=== PATIENT | male | born 1950 | race American Indian/Alaskan Native ===

== ENCOUNTER 2016-08-16 08:08 | Outpatient (CLI) | payer MEDICARE ==
[2016-08-16 08:34] LABS: Hemoglobin 14.3 gm/dl (11.8-15.2); Mean Corpuscular HGB Conc 33 % (32-34); Mean Corpuscular Hemoglobin 28 pg (28-32); Mean Corpuscular Volume 84 fl (84-94); Red Blood Count 5.13 M/mm3 (3.65-5.03); Red Cell Distribution Width 15.3 % (13.2-15.2); White Blood Count 7.7 K/mm3 (4.5-11.0)
[2016-08-16 08:41] LABS: Platelet Count 179 K/mm3 (140-440)
[2016-08-16 09:05] LABS: Alanine Aminotransferase 36 units/L (7-56); Albumin 4.4 g/dL (3.9-5); Albumin/Globulin Ratio 1.3 %; Alkaline Phosphatase 85 units/L (35-129); Anion Gap 20 mmol/L; Bilirubin,Total 0.3 mg/dL (0.1-1.2); Blood Urea Nitrogen 13 mg/dL (9-20); Calcium 9.3 mg/dL (8.4-10.2); Carbon Dioxide 21 mmol/L (22-30); Chloride 101.3 mmol/L (98-107); Glucose 94 mg/dL (75-100); Potassium 4.2 mmol/L (3.6-5.0); Sodium 138 mmol/L (137-145); Total Protein 7.8 g/dL (6.3-8.2)
--- NOTE | 2016-08-16 09:06 | XRay Report ---
Chest 2 views: History: Acute bronchitis. Findings: Normal cardiomediastinal silhouette. Trachea is midline. Prominent bronchovascular markings. No consolidation or pleural effusion. Impression: Probable bronchitis. No evidence of pneumonitis.
== END 2016-08-16 08:09 | disposition home or self-care (01) ==
LOC: XRAY 08:08
PROVIDERS: ATTEND Internal Medicine
DX: J20.9 Acute bronchitis, unspecified (principal)
CPT/HCPCS: 36415; 71020; 80053; 84439; 84443; 85027

== ENCOUNTER 2016-10-07 15:19 | Inpatient (IN) | payer MEDICARE ==
[2016-10-07] MEDS ORDERED: NACL 0.9% 500 ML 500 ML ONE (15:58)
--- NOTE | 2016-10-07 16:21 | XRay Report ---
PORTABLE CHEST INDICATION: Shortness of breath. COMPARISON: 08/16/2016 FINDINGS: Portable, frontal chest radiograph demonstrates limited inspiration with slightly crowded lung markings and slight exaggerated cardiomediastinal silhouette. No pleural effusions or CHF. EKG leads. Stable bones. CONCLUSION: No acute disease. Thank you for the opportunity to participate in this patient's care.
[2016-10-07 16:43] LABS: Hematocrit 42.4 % (35.5-45.6); Hemoglobin 13.7 gm/dl (11.8-15.2); Mean Corpuscular HGB Conc 32 % (32-34); Mean Corpuscular Hemoglobin 27 pg (28-32); Mean Corpuscular Volume 85 fl (84-94); Platelet Count 203 K/mm3 (140-440); Red Cell Distribution Width 15.6 % (13.2-15.2); White Blood Count 4.7 K/mm3 (4.5-11.0)
[2016-10-07 16:58] LABS: Alanine Aminotransferase 34 units/L (7-56); Albumin 4.4 g/dL (3.9-5); Albumin/Globulin Ratio 1.7 %; Alkaline Phosphatase 76 units/L (35-129); Anion Gap 19 mmol/L; BUN/Creatinine Ratio 7.85; Bilirubin,Total 0.3 mg/dL (0.1-1.2); Blood Urea Nitrogen 11 mg/dL (9-20); Calcium 9.3 mg/dL (8.4-10.2); Carbon Dioxide 23 mmol/L (22-30); Chloride 100.3 mmol/L (98-107); Glucose 101 mg/dL (75-100); Sodium 138 mmol/L (137-145)
[2016-10-07 17:07] LABS: Bilirubin,Direct < 0.2 mg/dL (0-0.2); Bilirubin,Indirect 0.1 mg/dL
--- NOTE | 2016-10-07 17:16 | Emergency Department Report ---
ED Chest Pain HPI - General Chief Complaint: Chest Pain Stated Complaint: CHEST PAIN Time Seen by Provider: 10/07/16 16:22 Source: patient, EMS Mode of arrival: Wheelchair Limitations: No Limitations - History of Present Illness MD Complaint: chest pain -: This morning Pain Location: substernal Pain Radiation: none Severity: moderate Severity scale (0 -10): 3 Quality: tightness, aching Consistency: constant Improves With: nothing Worsens With: nothing Other Symptoms: denies: fever, syncope, acid taste in mouth, leg swelling Treatments Prior to Arrival: none - Related Data Previous Rx's Medication Instructions Recorded Last Taken Type Pantoprazole [Protonix INJ] 40 mg PO DAILY #30 tab 08/31/13 Unknown Rx Allergies Allergy/AdvReac Type Severity Reaction Status Date / Time No Known Allergies Allergy Verified 09/10/13 09:16 NAZANIN score - Nazanin Score Age > 65: (0) No Aspirin use within the Past 7 Days: (1) Yes 3 or more CAD Risk Factors: (0) No 2 or more Angina events in past 24 hrs: (0) No Known CAD with more than 50% Stenosis: (0) No Elevated Cardiac Markers: (0) No ST Deviation Greater than 0.5mm: (0) No NAZANIN Score: 1 ED Review of Systems ROS: Stated complaint: CHEST PAIN Other details as noted in HPI Comment: All other systems reviewed and negative ED Past Medical Hx - Past Medical History Previous Medical History?: Yes Hx Hypertension: Yes Hx Heart Attack/AMI: No Hx Congestive Heart Failure: No Hx Diabetes: No Hx Deep Vein Thrombosis: No Hx Pulmonary Embolism: No Hx GERD: Yes Hx Liver Disease: No Hx Renal Disease: No Hx of Cancer: Yes (prostate and colon Unknown year) Hx Sickle Cell Disease: No Hx Arthritis: No Hx Seizures: No Hx Kidney Stones: No Hx Asthma: No Hx COPD: No Hx Tuberculosis: No Hx Dementia: No Hx HIV: No Additional medical history: Fatty tissue on liver, alcoholism - Surgical History Past Surgical History?: Yes Hx Coronary Stent: No Hx Pacemaker: No Hx Internal Defibrillator: No Additional Surgical History: bowel reconstruction-1999? part of colon removed; prostate removed - Social History Smoking Status: Former Smoker Substance Use Type: Prescribed - Medications Home Medications: Home Medications Medication Instructions Recorded Confirmed Last Taken Type Pantoprazole [Protonix INJ] 40 mg PO DAILY #30 tab 08/31/13 09/10/13 Unknown Rx ED Physical Exam - General Limitations: No Limitations General appearance: alert, in no apparent distress - Head Head exam: Present: atraumatic, normocephalic - Eye Eye exam: Present: normal appearance - ENT ENT exam: Present: mucous membranes moist - Neck Neck exam: Present: normal inspection - Respiratory Respiratory exam: Present: normal lung sounds bilaterally. Absent: respiratory distress - Cardiovascular Cardiovascular Exam: Present: regular rate, normal rhythm. Absent: systolic murmur, diastolic murmur, rubs, gallop - GI/Abdominal GI/Abdominal exam: Present: soft, normal bowel sounds - Rectal Rectal exam: Present: deferred - Extremities Exam Extremities exam: Present: normal inspection - Back Exam Back exam: Present: normal inspection - Neurological Exam Neurological exam: Present: alert, oriented X3 - Psychiatric Psychiatric exam: Present: normal affect, normal mood - Skin Skin exam: Present: warm, dry, intact, normal color. Absent: rash ED Course Vital Signs 10/07/16 10/07/16 10/07/16 15:27 15:30 15:41 Temperature 98.6 F Pulse Rate 89 75 Respiratory 13 14 16 Rate Blood Pressure 133/78 Blood Pressure [Left] O2 Sat by Pulse Oximetry 10/07/16 10/07/16 15:45 15:51 Temperature 98.5 F Pulse Rate 77 18 L Respiratory 18 16 Rate Blood Pressure 134/75 Blood Pressure 133/75 [Left] O2 Sat by Pulse 95 95 Oximetry ED Medical Decision Making - Lab Data Result diagrams: 10/07/16 16:18 10/07/16 16:18 - EKG Data When compared to previous EKG there are: no significant change Interpretation: no acute changes, unchanged when compared t - Medical Decision Making patient will be admitted for chest pain and probably stressed tomorrow am, first set of enzymes negative. cxr negative he is pain free at this time , discuss case with cardiology and agree with the admission Critical care attestation.: If time is entered above; I have spent that time in minutes in the direct care of this critically ill patient, excluding procedure time. ED Disposition Clinical Impression: Chest pain Disposition: OP ADMITTED IP TO THIS HOSP Is pt being admited?: Yes Does the pt Need Aspirin: Yes Condition: Good Referrals: PRIMARY CARE,MD [Primary Care Provider] - 3-5 Days Time of Disposition: 18:46
--- NOTE | 2016-10-07 19:03 | Admit Criteria Form ---
Admission Criteria Documentation: CHEST PAIN Clinical Indications for Admission to Inpatient Care (Place 'X' for any and all applicable criteria): Admission is indicated for chest pain and ANY ONE of the following(1)(2)(3)(4)(5 ): [ ]I. Angina with acute coronary syndrome (Also use Myocardial Infarction or Angina guideline) [ ]II. Hemodynamic instability [ ]III. Angina needing acute intervention as indicated by ALL of the following( 11)(12): [ ]a) Unstable angina is present as indicated by angina that is ANY ONE of the following: [ ]i) New onset [ ]ii) Nocturnal [ ]iii) Prolonged at rest [ ]iv) Progressive [ ]b) Angina warrants acute intervention as indicated by ANY ONE of the following: [ ]i) Recurrent angina (e.g, not responding as previously to treatment) [ ]ii) Angina at rest or with low-level activities despite initial medical therapy [ ]iii) New or presumably new ST-segment depression on ECG [ ]iv) Signs or symptoms of heart failure (eg, dyspnea, pulmonary edema) [ ]v) New or worsening mitral regurgitation [ ]vi) Hemodynamic instability [ ]vii) Dangerous arrhythmia (eg, sustained ventricular tachycardia) [ ]viii) History of percutaneous coronary intervention within 6 months [ ]ix) History of coronary artery bypass graft surgery [ ]x) NAZANIN risk score of 2 or greater[A] [ ]xi) History of Diabetes(14) [ ]xii) High-risk cardiac ischemia findings on noninvasive testing (e.g, echocardiogram, treadmill testing, nuclear scan) [ ]xiii) Chronic renal insufficiency (ie, estimated GFR less than 60 mL/min/1.732m) [ ]xiv) Left ventricular ejection fraction less than 40% [ ]IV. Evidence of WA (eg, cardiac biomarkers positive, ST-segment elevation on ECG) also use Myocardial Infarction Criteria Form. [ ]V. Pulmonary edema [ ]. Respiratory distress [ ]VII. Chest pain indicative of serious diagnosis other than coronary artery disease (eg, aortic dissection) [ ]VIII. Contraindications and/or Inappropriate clinical situations for Observational Care in patients with Chest Pain, when ANY ONE of the following is required: [ ]a) Patient with risk factor for pulmonary embolism, acute coronary syndrome and myocardial infarction (18) [ ]b) Patient with Pulmonary embolism require an average LOS of 4.3 days, therefore emergency department observation management is inappropriate 18,23 [ ]c) Painful condition/s in the elderly, have the highest rate of recidivism after emergency department observation management (10.8%) 20,21,22 [ ]d) Elevated cardiac biomarker requires intensive and exhaustive care (19) [X ]IX. General contraindications and/or Inappropriate clinical situations for Observational Care in patients with Chest Pain, when ANY ONE of the following is required: [X ]a) Prediction of prolongation of LOS based on ANY ONE of the following may be considered as a contraindication for observational care 2, 3, 4, 5, 6, 7, 8, 9, 10, 11 [ ]i) Age > 65 yrs. [X ]ii) Patient arriving by ambulance [ ]iii) Patient with high acuity [ ]iv) Patient requiring vital sign monitoring [ ]v) Patient on IV medication [ ]b) Systolic blood pressures 180mmHg 3,12 [ ]c) Patient with altered mental status including delirium and other alteration of consciousness, (3) [ ]d) Patient whose discharge disposition will be to a penitentiary home or rehabilitation home should not be managed in Emergency Department Observation Unit. CMS rule requires 3 days hospital stay before such placement. 3,13 [ ]e) Patient with failure to thrive due to broad array of etiologies 3,16,17 [ ]f) Inability to ambulate 3,14 Extended stay beyond goal length of stay may be needed for (1)(28): [ ]a) Specific condition diagnosed after evaluation (eg, pulmonary embolism, aortic dissection) [ ]b) Unstable angina [ ]c) Continued suspicion of acute coronary syndrome with inability to complete needed cardiac evaluation (eg, patient clinically unable to undergo stress testing) [ ]d) Myocardial infarction (Contents from ANGINA and CHEST PAIN clinical indications for admission to inpatient care have been integrated in this form) The original [facility] content created by [email or web address] has been revised. The portions of the content which have been revised are identified through the use of italic text or in bold, and [facility] [email or web address] has neither reviewed nor approved the modified material. All other unmodified content is copyright [facility]. Please see references footnoted in the original [facility] edition 2016 Admission Criteria Met: Yes
[2016-10-07 20:00] LABS: Basophils % (Manual) 0 % (0.0-1.8); Blastocytes % (Manual) 0 %
[2016-10-07 20:01] LABS: Diff Status Complete; RBC Morphology Normal
--- NOTE | 2016-10-07 21:33 | History and Physical Report ---
History of Present Illness Date of examination: 10/07/16 Date of admission: 10/07/16 18:48 Chief complaint: Chest pain since AM History of present illness: 65 y/o AAM with HTN GeRD and urinary incontinence comes in for chest pain since AM.No Diaphoresis palpitations or SOB.Pain is 9/10.Pain is retrosternal and not radiating.No exacerbating or relieving factors. Past History Past Medical History: GERD, hypertension, other (urinary incontinence) Past Surgical History: Other (Bowel reconstruction.Colectomy, prostatectomy) Social history: , smoking (Former) Family history: hypertension Medications and Allergies Allergies Allergy/AdvReac Type Severity Reaction Status Date / Time No Known Allergies Allergy Verified 09/10/13 09:16 Home Medications Medication Instructions Recorded Confirmed Last Taken Type Cetirizine (Nf) 10 mg PO DAILY 10/07/16 10/07/16 Unknown History Dexlansoprazole [Dexilant] 60 mg PO DAILY 10/07/16 10/07/16 Unknown History Ibuprofen [Motrin 800 MG tab] 800 mg PO TID 10/07/16 10/07/16 Unknown History Losartan [Cozaar] 50 mg PO QDAY 10/07/16 10/07/16 Unknown History Mirabegron [Myrbetriq] 50 mg PO DAILY 10/07/16 10/07/16 Unknown History amLODIPine [Norvasc] 10 mg PO DAILY 10/07/16 10/07/16 Unknown History Review of Systems All systems: negative Constitutional: no weight loss, no weight gain Ears, nose, mouth and throat: no dysphagia, no hoarseness, no sore throat Cardiovascular: chest pain, no orthopnea, no palpitations, no shortness of breath, no dyspnea on exertion, no paroxysmal nocturnal dyspnea Respiratory: no cough with sputum, no excessive sputum, no shortness of breath, no dyspnea on exertion, no congestion Gastrointestinal: no nausea, no vomiting, no diarrhea, no constipation, no change in bowel habits Genitourinary Male: no hematuria, no flank pain, no discharge, no urinary frequency, no urinary hesitancy, no nocturia Musculoskeletal: no neck stiffness, no neck pain Integumentary: no rash, no pruritis, no redness, no sores Neurological: no seizures, no syncope Psychiatric: no anxiety, no depression Endocrine: no cold intolerance, no heat intolerance, no polyphagia, no polydipsia, no polyuria, no nocturia Hematologic/Lymphatic: no easy bruising, no easy bleeding Allergic/Immunologic: no urticaria, no allergic rhinitis, no wheezing Exam - Physical Exam Narrative exam: 65 y/o AAM in slight distress b/c of chest pain - Constitutional Vitals: Temp Pulse Resp BP Pulse Ox 98.6 F 71 20 131/71 96 10/07/16 20:08 10/07/16 20:08 10/07/16 20:08 10/07/16 20:08 10/07/16 20:08 General appearance: Present: no acute distress, well-nourished - EENT Eyes: Present: PERRL ENT: hearing intact, clear oral mucosa - Neck Neck: Present: supple, normal ROM - Respiratory Respiratory effort: normal Respiratory: bilateral: CTA - Cardiovascular Rhythm: regular Heart Sounds: Present: S1 & S2. Absent: rub, click - Extremities Extremities: pulses symmetrical, No edema Peripheral Pulses: within normal limits - Abdominal General gastrointestinal: Present: soft, non-tender, non-distended, normal bowel sounds Male genitourinary: Present: normal - Integumentary Integumentary: Present: clear, warm, dry - Musculoskeletal Musculoskeletal: gait normal, strength equal bilaterally - Psychiatric Psychiatric: appropriate mood/affect, intact judgment & insight - Neurologic Neurologic: CNII-XII intact, moves all extremities Results - Labs CBC & Chem 7: 10/07/16 16:18 10/07/16 16:18 Labs: Laboratory Last Values WBC 4.7 K/mm3 (4.5-11.0) 10/07/16 16:18 RBC 5.00 M/mm3 (3.65-5.03) 10/07/16 16:18 Hgb 13.7 gm/dl (11.8-15.2) 10/07/16 16:18 Hct 42.4 % (35.5-45.6) 10/07/16 16:18 MCV 85 fl (84-94) 10/07/16 16:18 MCH 27 pg (28-32) L 10/07/16 16:18 MCHC 32 % (32-34) 10/07/16 16:18 RDW 15.6 % (13.2-15.2) H 10/07/16 16:18 Plt Count 203 K/mm3 (140-440) 10/07/16 16:18 Add Manual Diff Complete 10/07/16 16:18 Total Counted 100 10/07/16 16:18 Seg Neutrophils % Scale Reclamation Tender 10/07/16 16:18 Seg Neuts % (Manual) 28.0 % (40.0-70.0) L 10/07/16 16:18 Band Neutrophils % 0 % 10/07/16 16:18 Lymphocytes % (Manual) 58.0 % (13.4-35.0) H 10/07/16 16:18 Reactive Lymphs % (Man) 0 % 10/07/16 16:18 Monocytes % (Manual) 11.0 % (0.0-7.3) H 10/07/16 16:18 Eosinophils % (Manual) 3.0 % (0.0-4.3) 10/07/16 16:18 Basophils % (Manual) 0 % (0.0-1.8) 10/07/16 16:18 Metamyelocytes % 0 % 10/07/16 16:18 Myelocytes % 0 % 10/07/16 16:18 Promyelocytes % 0 % 10/07/16 16:18 Blast Cells % 0 % 10/07/16 16:18 Nucleated RBC % Not Reportable 10/07/16 16:18 Seg Neutrophils # Man 1.3 K/mm3 (1.8-7.7) L 10/07/16 16:18 Band Neutrophils # 0.0 K/mm3 10/07/16 16:18 Lymphocytes # (Manual) 2.7 K/mm3 (1.2-5.4) 10/07/16 16:18 Abs React Lymphs (Man) 0.0 K/mm3 10/07/16 16:18 Monocytes # (Manual) 0.5 K/mm3 (0.0-0.8) 10/07/16 16:18 Eosinophils # (Manual) 0.1 K/mm3 (0.0-0.4) 10/07/16 16:18 Basophils # (Manual) 0.0 K/mm3 (0.0-0.1) 10/07/16 16:18 Metamyelocytes # 0.0 K/mm3 10/07/16 16:18 Myelocytes # 0.0 K/mm3 10/07/16 16:18 Promyelocytes # 0.0 K/mm3 10/07/16 16:18 Blast Cells # 0.0 K/mm3 10/07/16 16:18 WBC Morphology Not Reportable 10/07/16 16:18 Hypersegmented Neuts Not Reportable 10/07/16 16:18 Hyposegmented Neuts Not Reportable 10/07/16 16:18 Hypogranular Neuts Not Reportable 10/07/16 16:18 Smudge Cells Not Reportable 10/07/16 16:18 Toxic Granulation Not Reportable 10/07/16 16:18 Toxic Vacuolation Not Reportable 10/07/16 16:18 Dohle Bodies Not Reportable 10/07/16 16:18 Pelger-Huet Anomaly Not Reportable 10/07/16 16:18 Marky Rods Not Reportable 10/07/16 16:18 Platelet Estimate Appears normal 10/07/16 16:18 Clumped Platelets Not Reportable 10/07/16 16:18 Plt Clumps, EDTA Not Reportable 10/07/16 16:18 Large Platelets Not Reportable 10/07/16 16:18 Giant Platelets Not Reportable 10/07/16 16:18 Platelet Satelliting Not Reportable 10/07/16 16:18 Plt Morphology Comment Not Reportable 10/07/16 16:18 RBC Morphology Normal 10/07/16 16:18 Dimorphic RBCs Not Reportable 10/07/16 16:18 Polychromasia Not Reportable 10/07/16 16:18 Hypochromasia Not Reportable 10/07/16 16:18 Poikilocytosis Not Reportable 10/07/16 16:18 Anisocytosis Not Reportable 10/07/16 16:18 Microcytosis Not Reportable 10/07/16 16:18 Macrocytosis Not Reportable 10/07/16 16:18 Spherocytes Not Reportable 10/07/16 16:18 Pappenheimer Bodies Not Reportable 10/07/16 16:18 Sickle Cells Not Reportable 10/07/16 16:18 Target Cells Not Reportable 10/07/16 16:18 Tear Drop Cells Not Reportable 10/07/16 16:18 Ovalocytes Not Reportable 10/07/16 16:18 Helmet Cells Not Reportable 10/07/16 16:18 [place] Bodies Not Reportable 10/07/16 16:18 Badger Rings Not Reportable 10/07/16 16:18 Vineet Cells Not Reportable 10/07/16 16:18 Bite Cells Not Reportable 10/07/16 16:18 Crenated Cell Not Reportable 10/07/16 16:18 Elliptocytes Not Reportable 10/07/16 16:18 Acanthocytes (Spur) Not Reportable 10/07/16 16:18 Rouleaux Not Reportable 10/07/16 16:18 Hemoglobin C Crystals Not Reportable 10/07/16 16:18 Schistocytes Not Reportable 10/07/16 16:18 Malaria parasites Not Reportable 10/07/16 16:18 Jesus Bodies Not Reportable 10/07/16 16:18 Hem Pathologist Commnt No 10/07/16 16:18 Sodium 138 mmol/L (137-145) 10/07/16 16:18 Potassium 4.0 mmol/L (3.6-5.0) 10/07/16 16:18 Chloride 100.3 mmol/L (98-107) 10/07/16 16:18 Carbon Dioxide 23 mmol/L (22-30) 10/07/16 16:18 Anion Gap 19 mmol/L 10/07/16 16:18 BUN 11 mg/dL (9-20) 10/07/16 16:18 Creatinine 1.4 mg/dL (0.8-1.5) 10/07/16 16:18 Estimated GFR > 60 ml/min 10/07/16 16:18 BUN/Creatinine Ratio 7.85 % 10/07/16 16:18 Glucose 101 mg/dL (75-100) H 10/07/16 16:18 Calcium 9.3 mg/dL (8.4-10.2) 10/07/16 16:18 Total Bilirubin 0.3 mg/dL (0.1-1.2) 10/07/16 16:18 Direct Bilirubin < 0.2 mg/dL (0-0.2) 10/07/16 16:18 Indirect Bilirubin 0.1 mg/dL 10/07/16 16:18 AST 25 units/L (5-40) 10/07/16 16:18 ALT 34 units/L (7-56) 10/07/16 16:18 Alkaline Phosphatase 76 units/L (35-129) 10/07/16 16:18 Troponin T < 0.010 ng/mL (0.00-0.029) 10/07/16 16:18 Total Protein 7.0 g/dL (6.3-8.2) 10/07/16 16:18 Albumin 4.4 g/dL (3.9-5) 10/07/16 16:18 Albumin/Globulin Ratio 1.7 % 10/07/16 16:18 Short CBC 10/07/16 Range/Units 16:18 WBC 4.7 (4.5-11.0) K/mm3 Hgb 13.7 (11.8-15.2) gm/dl Hct 42.4 (35.5-45.6) % Plt Count 203 (140-440) K/mm3 BMP 10/07/16 16:18 Sodium 138 Potassium 4.0 Chloride 100.3 Carbon Dioxide 23 BUN 11 Creatinine 1.4 Glucose 101 H Calcium 9.3 Cardiac Enzymes 10/07/16 10/07/16 10/08/16 Range/Units 16:18 22:08 00:42 Total Creatine Kinase 340 H 320 H (55-170) units/L CK-MB (CK-2) 3.2 3.0 (0.0-4.0) ng/mL Troponin T < 0.010 < 0.010 < 0.010 (0.00-0.029) ng/mL 10/08/16 Range/Units 05:54 Total Creatine Kinase 298 H (55-170) units/L CK-MB (CK-2) 2.6 (0.0-4.0) ng/mL Troponin T < 0.010 (0.00-0.029) ng/mL Liver Function 10/07/16 Range/Units 16:18 Total Bilirubin 0.3 (0.1-1.2) mg/dL Direct Bilirubin < 0.2 (0-0.2) mg/dL AST 25 (5-40) units/L ALT 34 (7-56) units/L Alkaline Phosphatase 76 (35-129) units/L Albumin 4.4 (3.9-5) g/dL - Imaging and Cardiology EKG: report reviewed (NSR) Assessment and Plan Advance Directives: Yes (Full code) VTE prophylaxis?: Chemical Plan of care discussed with patient/family: Yes - Patient Problems (1) Chest pain Current Visit: Yes Status: Acute Qualifiers: Chest pain type: unspecified Qualified Code(s): R07.9 - Chest pain, unspecified Plan to address problem: Chest pain r/o FL.Serial cardiac enzymes and Lexiscan in AM (2) HTN (hypertension) Current Visit: Yes Status: Chronic Qualifiers: Hypertension type: essential hypertension Qualified Code(s): I10 - Essential (primary) hypertension Plan to address problem: Cont anti hypertensives (3) GERD (gastroesophageal reflux disease) Current Visit: Yes Status: Chronic Qualifiers: Esophagitis presence: without esophagitis Qualified Code(s): K21.9 - Gastro -esophageal reflux disease without esophagitis Plan to address problem: Cont PPI's (4) Urinary bladder incontinence Current Visit: Yes Status: Chronic Qualifiers: Urinary Incontinence type: stress incontinence Qualified Code(s): N39.3 - Stress incontinence (female) (male) Plan to address problem: On myrbetriq (5) Allergic rhinitis Current Visit: Yes Status: Chronic Qualifiers: Allergic rhinitis seasonality: non-seasonal Allergic rhinitis trigger: A Plan to address problem: Cont cetrizine (6) DVT prophylaxis Current Visit: Yes Status: Acute Plan to address problem: on lovenox
[2016-10-07] MEDS ORDERED: SODIUM CHLORIDE FLUSH SYRINGE 10 ML IV PRN (21:38)
[2016-10-07] MEDS ORDERED: NON-FORMULARY (Dexlansoprazole [Dexilant] 60 MG) PO SCH (21:45)
[2016-10-07] MEDS ORDERED: CETIRIZINE 10 MG PO SCH (21:45)
[2016-10-07 22:46] LABS: Creatine Kinase 340 units/L (55-170); Creatine Kinase MB 3.2 ng/mL (0.0-4.0)
[2016-10-07] MEDS: NORVASC PO SCH (22:52)
[2016-10-07] MEDS: COZAAR PO SCH (22:52)
[2016-10-07] MEDS: CLARITIN PO SCH (22:53)
[2016-10-07] MEDS: PROTONIX PO SCH (22:53)
[2016-10-08 01:25] LABS: Creatine Kinase 320 units/L (55-170)
[2016-10-08 07:07] LABS: Creatine Kinase MB 2.6 ng/mL (0.0-4.0)
[2016-10-08 07:09] LABS: Creatine Kinase 298 units/L (55-170)
[2016-10-08] MEDS ORDERED: NON-FORMULARY (Mirabegron [Myrbetriq] 50 MG) PO SCH (10:00)
[2016-10-08] MEDS ORDERED: LEXISCAN IV ONE ×2 (10:28→10:33)
--- NOTE | 2016-10-08 11:07 | Discharge Summary ---
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 ACS was ruled out by negative troponins, he went on to have a Lexiscan nuclear stress test that was negative. Chest pain was most likely due to GERD and he was recommended to continue PPI. Diagnoses 1. Chest pain 2. GERD 3. Hypertension Disposition: DISCHARGED TO HOME OR SELFCARE Time spent for discharge: 35 minutes Core Measure Documentation - Palliative Care Palliative Care/ Comfort Measures: Not Applicable - Core Measures Any of the following diagnoses?: none Exam - Constitutional Vitals: Temp Pulse Resp BP Pulse Ox 98.5 F 72 20 134/70 92 10/08/16 08:13 10/08/16 08:13 10/08/16 08:13 10/08/16 08:13 10/08/16 08:13 General appearance: Present: no acute distress, well-nourished - EENT Eyes: Present: PERRL ENT: hearing intact, clear oral mucosa - Neck Neck: Present: supple, normal ROM - Respiratory Respiratory effort: normal Respiratory: bilateral: CTA - Cardiovascular Heart Sounds: Present: S1 & S2. Absent: rub, click - Extremities Extremities: pulses symmetrical, No edema Peripheral Pulses: within normal limits - Abdominal General gastrointestinal: Present: soft, non-tender, non-distended, normal bowel sounds Male genitourinary: Present: normal - Integumentary Integumentary: Present: clear, warm, dry - Musculoskeletal Musculoskeletal: gait normal, strength equal bilaterally - Psychiatric Psychiatric: appropriate mood/affect, intact judgment & insight - Neurologic Neurologic: CNII-XII intact, moves all extremities Plan Follow up with: PRIMARY CARE, [Primary Care Provider] - 3-5 Days
[2016-10-08] MEDS: PROTONIX PO SCH (13:18)
[2016-10-08] MEDS: CLARITIN PO SCH (13:19)
[2016-10-08] MEDS: COZAAR PO SCH (13:19)
[2016-10-08] MEDS: NORVASC PO SCH (13:19)
--- NOTE | 2016-10-08 17:54 | Progress Note ---
Assessment and Plan Assessment and plan: 25-year-old man with a past medical history of hypertension and GERD bladder incontinency presented chest pain 1 day 1. Chest pain ACS ruled out by negative troponins, awaiting stress test result 2. Hypertension Continue current medications 3. GERD Continue PPI 4. Bladder incontinence Continue chronic medications History Interval history: Chest pain has now resolved, patient admits that the pain might be more epigastric Hospitalist Physical - Physical exam Narrative exam: General: Patient appears well in no distress HEENT: MMM, EOMI cardiac: S1-S2 heard lungs: clear to auscultation, abdomen: soft, nontender, nondistended bowel sounds positive extremities: no edema clubbing or cyanosis Skin: no rash or lesion Neuro: no focal deficit Psych: appropriate behavior and mood, cognition intact - Constitutional Vitals: Temp Pulse Resp BP Pulse Ox 97.9 F 77 20 123/67 96 10/08/16 17:21 10/08/16 17:21 10/08/16 17:21 10/08/16 17:21 10/08/16 17:21 General appearance: Present: no acute distress, well-nourished Results - Labs CBC & Chem 7: 10/07/16 16:18 10/07/16 16:18 Labs: Laboratory Last Values WBC 4.7 K/mm3 (4.5-11.0) 10/07/16 16:18 RBC 5.00 M/mm3 (3.65-5.03) 10/07/16 16:18 Hgb 13.7 gm/dl (11.8-15.2) 10/07/16 16:18 Hct 42.4 % (35.5-45.6) 10/07/16 16:18 MCV 85 fl (84-94) 10/07/16 16:18 MCH 27 pg (28-32) L 10/07/16 16:18 MCHC 32 % (32-34) 10/07/16 16:18 RDW 15.6 % (13.2-15.2) H 10/07/16 16:18 Plt Count 203 K/mm3 (140-440) 10/07/16 16:18 Add Manual Diff Complete 10/07/16 16:18 Total Counted 100 10/07/16 16:18 Seg Neutrophils % Instrument Man 10/07/16 16:18 Seg Neuts % (Manual) 28.0 % (40.0-70.0) L 10/07/16 16:18 Band Neutrophils % 0 % 10/07/16 16:18 Lymphocytes % (Manual) 58.0 % (13.4-35.0) H 10/07/16 16:18 Reactive Lymphs % (Man) 0 % 10/07/16 16:18 Monocytes % (Manual) 11.0 % (0.0-7.3) H 10/07/16 16:18 Eosinophils % (Manual) 3.0 % (0.0-4.3) 10/07/16 16:18 Basophils % (Manual) 0 % (0.0-1.8) 10/07/16 16:18 Metamyelocytes % 0 % 10/07/16 16:18 Myelocytes % 0 % 10/07/16 16:18 Promyelocytes % 0 % 10/07/16 16:18 Blast Cells % 0 % 10/07/16 16:18 Nucleated RBC % Not Reportable 10/07/16 16:18 Seg Neutrophils # Man 1.3 K/mm3 (1.8-7.7) L 10/07/16 16:18 Band Neutrophils # 0.0 K/mm3 10/07/16 16:18 Lymphocytes # (Manual) 2.7 K/mm3 (1.2-5.4) 10/07/16 16:18 Abs React Lymphs (Man) 0.0 K/mm3 10/07/16 16:18 Monocytes # (Manual) 0.5 K/mm3 (0.0-0.8) 10/07/16 16:18 Eosinophils # (Manual) 0.1 K/mm3 (0.0-0.4) 10/07/16 16:18 Basophils # (Manual) 0.0 K/mm3 (0.0-0.1) 10/07/16 16:18 Metamyelocytes # 0.0 K/mm3 10/07/16 16:18 Myelocytes # 0.0 K/mm3 10/07/16 16:18 Promyelocytes # 0.0 K/mm3 10/07/16 16:18 Blast Cells # 0.0 K/mm3 10/07/16 16:18 WBC Morphology Not Reportable 10/07/16 16:18 Hypersegmented Neuts Not Reportable 10/07/16 16:18 Hyposegmented Neuts Not Reportable 10/07/16 16:18 Hypogranular Neuts Not Reportable 10/07/16 16:18 Smudge Cells Not Reportable 10/07/16 16:18 Toxic Granulation Not Reportable 10/07/16 16:18 Toxic Vacuolation Not Reportable 10/07/16 16:18 Dohle Bodies Not Reportable 10/07/16 16:18 Pelger-Huet Anomaly Not Reportable 10/07/16 16:18 Marky Rods Not Reportable 10/07/16 16:18 Platelet Estimate Appears normal 10/07/16 16:18 Clumped Platelets Not Reportable 10/07/16 16:18 Plt Clumps, EDTA Not Reportable 10/07/16 16:18 Large Platelets Not Reportable 10/07/16 16:18 Giant Platelets Not Reportable 10/07/16 16:18 Platelet Satelliting Not Reportable 10/07/16 16:18 Plt Morphology Comment Not Reportable 10/07/16 16:18 RBC Morphology Normal 10/07/16 16:18 Dimorphic RBCs Not Reportable 10/07/16 16:18 Polychromasia Not Reportable 10/07/16 16:18 Hypochromasia Not Reportable 10/07/16 16:18 Poikilocytosis Not Reportable 10/07/16 16:18 Anisocytosis Not Reportable 10/07/16 16:18 Microcytosis Not Reportable 10/07/16 16:18 Macrocytosis Not Reportable 10/07/16 16:18 Spherocytes Not Reportable 10/07/16 16:18 Pappenheimer Bodies Not Reportable 10/07/16 16:18 Sickle Cells Not Reportable 10/07/16 16:18 Target Cells Not Reportable 10/07/16 16:18 Tear Drop Cells Not Reportable 10/07/16 16:18 Ovalocytes Not Reportable 10/07/16 16:18 Helmet Cells Not Reportable 10/07/16 16:18 [place] Bodies Not Reportable 10/07/16 16:18 [place] Rings Not Reportable 10/07/16 16:18 [place] Cells Not Reportable 10/07/16 16:18 Bite Cells Not Reportable 10/07/16 16:18 Crenated Cell Not Reportable 10/07/16 16:18 Elliptocytes Not Reportable 10/07/16 16:18 Acanthocytes (Spur) Not Reportable 10/07/16 16:18 Rouleaux Not Reportable 10/07/16 16:18 Hemoglobin C Crystals Not Reportable 10/07/16 16:18 Schistocytes Not Reportable 10/07/16 16:18 Malaria parasites Not Reportable 10/07/16 16:18 Jesus Bodies Not Reportable 10/07/16 16:18 Hem Pathologist Commnt No 10/07/16 16:18 Sodium 138 mmol/L (137-145) 10/07/16 16:18 Potassium 4.0 mmol/L (3.6-5.0) 10/07/16 16:18 Chloride 100.3 mmol/L (98-107) 10/07/16 16:18 Carbon Dioxide 23 mmol/L (22-30) 10/07/16 16:18 Anion Gap 19 mmol/L 10/07/16 16:18 BUN 11 mg/dL (9-20) 10/07/16 16:18 Creatinine 1.4 mg/dL (0.8-1.5) 10/07/16 16:18 Estimated GFR > 60 ml/min 10/07/16 16:18 BUN/Creatinine Ratio 7.85 % 10/07/16 16:18 Glucose 101 mg/dL (75-100) H 10/07/16 16:18 Calcium 9.3 mg/dL (8.4-10.2) 10/07/16 16:18 Total Bilirubin 0.3 mg/dL (0.1-1.2) 10/07/16 16:18 Direct Bilirubin < 0.2 mg/dL (0-0.2) 10/07/16 16:18 Indirect Bilirubin 0.1 mg/dL 10/07/16 16:18 AST 25 units/L (5-40) 10/07/16 16:18 ALT 34 units/L (7-56) 10/07/16 16:18 Alkaline Phosphatase 76 units/L (35-129) 10/07/16 16:18 Total Creatine Kinase 298 units/L (55-170) H 10/08/16 05:54 CK-MB (CK-2) 2.6 ng/mL (0.0-4.0) 10/08/16 05:54 CK-MB (CK-2) Rel Index 0.8 (0-4) 10/08/16 05:54 Troponin T < 0.010 ng/mL (0.00-0.029) 10/08/16 05:54 Total Protein 7.0 g/dL (6.3-8.2) 10/07/16 16:18 Albumin 4.4 g/dL (3.9-5) 10/07/16 16:18 Albumin/Globulin Ratio 1.7 % 10/07/16 16:18
--- NOTE | 2016-10-08 18:25 | Consultation ---
History of Present Illness Consult date: 10/08/16 Consult reason: chest pain History of present illness: The patient's a 65-year-old man with a history of hypertension, no prior cardiac history. He presented to the emergency room with poorly characterized, nonexertional chest pain. Serial ECGs were sinus rhythm, no ischemic changes. Cardiac isoenzymes were normal 2. Today, he underwent a stress test during which he exercised for 6 minutes per Adriel protocol, there was no chest pain, no ST changes of ischemia. Subsequent thallium images were normal. Past History Past Medical History: GERD, hypertension, other (urinary incontinence) Past Surgical History: Other (Bowel reconstruction.Colectomy, prostatectomy) Social history: , smoking (Former) Family history: hypertension Medications and Allergies Allergies Allergy/AdvReac Type Severity Reaction Status Date / Time No Known Allergies Allergy Verified 09/10/13 09:16 Home Medications Medication Instructions Recorded Confirmed Last Taken Type Cetirizine (Nf) 10 mg PO DAILY 10/07/16 10/07/16 Unknown History Dexlansoprazole [Dexilant] 60 mg PO DAILY 10/07/16 10/07/16 Unknown History Losartan [Cozaar] 50 mg PO QDAY 10/07/16 10/07/16 Unknown History Mirabegron [Myrbetriq] 50 mg PO DAILY 10/07/16 10/07/16 Unknown History amLODIPine [Norvasc] 10 mg PO DAILY 10/07/16 10/07/16 Unknown History Aspirin EC [Aspirin Enteric Coated 81 mg PO QDAY #30 tablet. 10/08/16 Unknown Rx TAB] Active Meds: Active Medications Amlodipine Besylate (Norvasc) 10 mg PO DAILY [facility] Last Admin: 10/08/16 13:19 Dose: 10 mg Ibuprofen (Motrin) 400 mg PO Q6H PRN PRN Reason: Pain, Mild (1-3) Loratadine (Claritin) 10 mg PO DAILY [facility] Last Admin: 10/08/16 13:19 Dose: 10 mg Losartan Potassium (Cozaar) 50 mg PO QDAY [facility] Last Admin: 10/08/16 13:19 Dose: 50 mg Miscellaneous Medication (Mirabegron [Myrbetriq]) 50 mg PO DAILY [facility] Pantoprazole Sodium (Protonix) 40 mg PO DAILY [facility] Last Admin: 10/08/16 13:18 Dose: 40 mg Sodium Chloride (Sodium Chloride Flush Syringe 10 Ml) 10 ml IV PRN PRN PRN Reason: LINE FLUSH Review of Systems Cardiovascular: chest pain, no orthopnea, no palpitations, no rapid/irregular heart beat, no edema, no syncope, no lightheadedness, no shortness of breath Physical Examination Vital Signs Resp 13 10/07/16 15:27 General appearance: no acute distress HEENT: Positive: PERRL Neck: Positive: neck supple Cardiac: Positive: Reg Rate and Rhythm Lungs: Positive: Decreased Breath Sounds Neuro: Positive: Grossly Intact Abdomen: Positive: Soft Male genitourinary: Positive: deferred Skin: Positive: Clear Extremities: Absent: edema Results 10/07/16 16:18 10/07/16 16:18 Cardiac Enzymes 10/07/16 10/08/16 10/08/16 Range/Units 22:08 00:42 05:54 CK-MB (CK-2) 3.2 3.0 2.6 (0.0-4.0) ng/mL EKG interpretations - Telemetry EKG Rhythm: Sinus Rhythm Assessment and Plan - Patient Problems (1) Chest pain Current Visit: Yes Status: Acute Qualifiers: Chest pain type: unspecified Qualified Code(s): R07.9 - Chest pain, unspecified Plan to address problem: Patient presented with atypical chest pain, ECG and cardiac enzymes were benign , and a thallium stress test was normal at 7 METS exercise capacity. No further cardiac workup is indicated at this time, it is okay to discharge for outpatient follow-up. Patient is recommended to return to the emergency room immediately if any further chest pain.
[2016-10-08] MEDS: MOTRIN PO PRN (18:28)
--- NOTE | 2016-10-08 23:18 | Treadmill Report ---
THALLIUM STRESS TEST LEFT VENTRICLE: Left ventricular chamber size is within normal. Perfusion study demonstrates homogeneous uptake of the tracer in all segments, no significant defects identified. Gated analysis demonstrates normal left ventricular systolic function, ejection fraction 62%. CONCLUSION: Normal myocardial perfusion study. JOB# [id number] CA/NTS
[2016-10-09] MEDS: MOTRIN PO PRN (08:36)
[2016-10-09] MEDS: COZAAR PO SCH (10:11)
[2016-10-09] MEDS: CLARITIN PO SCH (10:12)
[2016-10-09] MEDS: PROTONIX PO SCH (10:12)
[2016-10-09] MEDS: NORVASC PO SCH (10:12)
--- NOTE | 2016-10-09 10:49 | Discharge Summary ---
Providers - Providers Date of Admission: 10/07/16 18:48 Date of discharge: 10/09/16 Attending physician: KEV JONAS 10/07/16 Consult to Cardiac Rehabilitation [CONS] Routine Reason For Exam: Phase I 10/07/16 21:38 Consult to Physician [CONS] Routine Consulting Provider: LORI HAMMONDS Reason For Exam: CP Place consult to:: [email or web address] Notified:: yes Phone number called:: over head Was contact made?: Yes If yes, spoke with:: isreal Time called:: 10:12 Primary care physician: REMOTE SENSING SURVEYOR Hospitalization Condition: Good Hospital course: The patient's a 65-year-old man with a history of hypertension, no prior cardiac history. He presented to the emergency room with poorly characterized, nonexertional chest pain. Serial ECGs were sinus rhythm, no ischemic changes. Cardiac isoenzymes were normal 2. He underwent a stress test during which he exercised for 6 minutes per Adriel protocol, there was no chest pain, no ST changes of ischemia. Subsequent thallium images were normal. His chest pain most likely gastric in origin he was discharged home in stable condition with trial 4 weeks of Protonix. He will follow up with his primary care doctor in 1 week. Discharge diagnosis: 1. Chest pain ACS ruled out by negative troponins, and negative stress test result Likely due to uncontrolled GERD 2. Hypertension Continue current medications 3. GERD Continue PPI 4. Bladder incontinence Continue chronic medications Disposition: DISCHARGED TO HOME OR SELFCARE Time spent for discharge: 32 minutes Core Measure Documentation - Palliative Care Palliative Care/ Comfort Measures: Not Applicable - Core Measures Any of the following diagnoses?: none Exam - Physical Exam Narrative exam: GENERAL: Elderly male lying on bed appeared to be in no discomfort. HEENT: Normocephalic. Atraumatic. No conjunctival congestion or icterus. Patient has moist mucous membranes. NECK: Supple. Trachea midline. CHEST/LUNGS: Clear to auscultated bilaterally, breathing nonlabored. No wheezes crackles or rhonchi. HEART/CARDIOVASCULAR: Regular in rate and rhythm. S1 and S2 positive. ABDOMEN: Abdomen is soft, nontender. Patient has normal bowel sounds. SKIN: There is no rash. Warm and dry. NEURO: No focal motor deficit. Follows command. MUSCULOSKELETAL: No joint effusion or tenderness. EXTRIMITY: No edema, no cyanosis or clubbing. PSYCH: Cooperative. - Constitutional Vitals: Temp Pulse Resp BP Pulse Ox 97.7 F 75 20 128/65 95 10/09/16 08:20 10/09/16 10:12 10/09/16 08:20 10/09/16 10:12 10/09/16 08:20 Plan Activity: advance as tolerated Weight Bearing Status: Weight Bear as Tolerated Diet: low cholesterol, low salt Follow up with: PRIMARY CARE, [Primary Care Provider] - 3-5 Days Prescriptions: Aspirin EC [Aspirin Enteric Coated TAB] 81 mg PO QDAY #30 tablet.
[2016-10-09 14:52] VITALS: BP 136/77
== END 2016-10-09 14:56 | disposition home or self-care (01) | DRG 392 ==
LOC: ED 15:19 → 4A 18:48
PROVIDERS: ATTEND Internal Medicine
DX: K21.9 Gastro-esophageal reflux disease without esophagitis (principal); N39.3 Stress incontinence (female) (male); J30.9 Allergic rhinitis, unspecified; I10 Essential (primary) hypertension; Z85.46 Personal history of malignant neoplasm of prostate; Z85.038 Personal history of other malignant neoplasm of large intestine; Z87.891 Personal history of nicotine dependence; Z82.49 Family history of ischemic heart disease and other diseases of the circulatory system; Z90.49 Acquired absence of other specified parts of digestive tract
CPT/HCPCS: 36415; 71010; 78452; 80048; 80074; 82550; 82553; 82962; 84484; 85007; 85025; 93005; 93010; 93017; A9502; J2785; J7040

== ENCOUNTER 2016-11-15 09:15 | Outpatient (CLI) | payer MEDICARE ==
[2016-11-15 09:40] LABS: Hematocrit 41.7 % (35.5-45.6); Hemoglobin 13.9 gm/dl (11.8-15.2); Mean Corpuscular HGB Conc 33 % (32-34); Mean Corpuscular Hemoglobin 28 pg (28-32); Mean Corpuscular Volume 85 fl (84-94); Platelet Count 186 K/mm3 (140-440); Red Blood Count 4.92 M/mm3 (3.65-5.03); Red Cell Distribution Width 15.4 % (13.2-15.2)
[2016-11-15 09:52] LABS: Albumin 4.2 g/dL (3.9-5); Anion Gap 16 mmol/L; BUN/Creatinine Ratio 8.57; Blood Urea Nitrogen 12 mg/dL (9-20); Calcium 9.3 mg/dL (8.4-10.2); Carbon Dioxide 24 mmol/L (22-30); Chloride 102.4 mmol/L (98-107); Glucose 103 mg/dL (75-100); Phosphorous 3.3 mg/dL (2.5-4.5); Potassium 4.5 mmol/L (3.6-5.0); Sodium 138 mmol/L (137-145)
[2016-11-15 11:10] LABS: Blastocytes % (Manual) 0 %
[2016-11-15 11:12] LABS: Platelet Estimate Consistent w Auto
[2016-11-15 11:13] LABS: Diff Status Complete
== END 2016-11-15 09:16 | disposition home or self-care (01) ==
LOC: LAB 09:15
PROVIDERS: ATTEND Internal Medicine
DX: D07.5 Carcinoma in situ of prostate (principal); I10 Essential (primary) hypertension; R94.8 Abnormal results of function studies of other organs and systems; N40.0 Benign prostatic hyperplasia without lower urinary tract symptoms
CPT/HCPCS: 36415; 80048; 82040; 82570; 84100; 84156; 85007; 85025

== ENCOUNTER 2017-12-01 10:43 | Outpatient (CLI) | payer MEDICARE ==
--- NOTE | 2017-12-01 11:05 | XRay Report ---
ROUTINE CHEST, TWO VIEWS: HISTORY: COPD. The trachea, heart, mediastinal contour, lung gordillo and bony thorax are unremarkable. No significant change since 10/07/16. IMPRESSION: Unremarkable chest x-ray.
[2017-12-01 11:24] LABS: Hematocrit 44.7 % (35.5-45.6); Hemoglobin 14.5 gm/dl (11.8-15.2); Mean Corpuscular HGB Conc 33 % (32-34); Mean Corpuscular Hemoglobin 28 pg (28-32); Mean Corpuscular Volume 85 fl (84-94); Platelet Count 219 K/mm3 (140-440); Red Blood Count 5.29 M/mm3 (3.65-5.03); Red Cell Distribution Width 15.6 % (13.2-15.2)
[2017-12-01 11:49] LABS: Alanine Aminotransferase 27 units/L (7-56); Albumin 4.6 g/dL (3.9-5); BUN/Creatinine Ratio 7; Blood Urea Nitrogen 9 mg/dL (9-20); Calcium 9.6 mg/dL (8.4-10.2); Chol/HDL Ratio 3.26 %; HDL Cholesterol 45 mg/dL (40-59); Hemolysis Index 43; LDL Cholesterol,Direct 90 mg/dL (50-130)
== END 2017-12-01 10:44 | disposition home or self-care (01) ==
LOC: XRAY 10:43
PROVIDERS: ATTEND Internal Medicine
DX: J44.9 Chronic obstructive pulmonary disease, unspecified (principal); R79.89 Other specified abnormal findings of blood chemistry; Z79.899 Other long term (current) drug therapy
CPT/HCPCS: 36415; 71046; 80053; 80061; 82785; 84436; 84443; 85027

== ENCOUNTER 2017-12-05 09:05 | Outpatient (CLI) | payer MEDICARE ==
[2017-12-05 09:38] LABS: Eosinophils # (Auto) 0.1 K/mm3 (0.0-0.4); Eosinophils % (Auto) 2.4 % (0.0-4.3); Hematocrit 43.4 % (35.5-45.6); Hemoglobin 14.2 gm/dl (11.8-15.2); Lymphocytes # (Auto) 1.6 K/mm3 (1.2-5.4); Lymphocytes % (Auto) 44.1 % (13.4-35.0); Mean Corpuscular HGB Conc 33 % (32-34); Mean Corpuscular Hemoglobin 28 pg (28-32); Mean Corpuscular Volume 85 fl (84-94); Monocytes # (Auto) 0.4 K/mm3 (0.0-0.8); Monocytes % (Auto) 10.3 % (0.0-7.3); Platelet Count 194 K/mm3 (140-440); Red Blood Count 5.09 M/mm3 (3.65-5.03); Red Cell Distribution Width 15.6 % (13.2-15.2)
[2017-12-05 09:45] LABS: Albumin 4.4 g/dL (3.9-5); BUN/Creatinine Ratio 7; Blood Urea Nitrogen 9 mg/dL (9-20); Calcium 9.4 mg/dL (8.4-10.2); Hemolysis Index 4
[2017-12-05 11:46] LABS: Creatinine,Urine 84.9 mg/dL (0.1-20.0); Protein/Creatinine Ratio,Urine 0.08
== END 2017-12-05 09:06 | disposition home or self-care (01) ==
LOC: LAB 09:05
PROVIDERS: ATTEND Internal Medicine
DX: I10 Essential (primary) hypertension (principal); K21.9 Gastro-esophageal reflux disease without esophagitis
CPT/HCPCS: 36415; 80048; 82040; 82570; 84100; 84156; 85025

== ENCOUNTER 2018-10-14 09:40 | Emergency (ER) | payer MEDICARE ==
--- NOTE | 2018-10-14 10:20 | Cat Scan Report ---
CT HEAD WITHOUT CONTRAST: HISTORY: Left-sided headache, hypertension. TECHNIQUE: Sequential 2.5mm CT images. COMPARISON: none. FINDINGS: Cerebral Parenchyma: Within normal limits. Cerebellum: Within normal limits. Brainstem: Within normal limits. Ventricles: Normal. Sella: Normal. Extra-axial spaces: Normal. Basal Cisterns: Normal. Intracranial Hemorrhage: None. Midline Shift: None. Calvarium: Normal. Sinuses: Normal. Mastoid Air Cells: Normal. Visualized Orbits: Normal. IMPRESSION: Cranial CT scan within normal limits.
[2018-10-14] MEDS ORDERED: FIORICET PO ONE (11:10)
--- NOTE | 2018-10-14 11:15 | Emergency Department Report ---
ED Headache HPI - General Chief Complaint: Headache Stated Complaint: FACE PAIN Time Seen by Provider: 10/14/18 10:53 - History of Present Illness Initial Comments: 67-year-old male with history of hypertension and sleep apnea presents to the ED with left temporal headache 3 days. Patient reports no relief with Tylenol at home. Denies fever, blurred vision, neck pain, nausea or vomiting. Patient states pain is better when he lays down. States pain is slightly worse when he is eating or chewing. Patient denies history of headaches. Denies head trauma. PCP: Dr Jeremias Chance Timing/Duration: other (3 days) Quality: moderate Recent Head Trauma: no recent headache/trauma, occasional headaches Associated Symptoms: denies: fever/chills, nausea/vomiting, nasal congestion, sinus infection, stiff neck, vision changes, weakness Allergies/Adverse Reactions: Allergies No Known Allergies Allergy (Verified 09/10/13 09:16) Home Medications: Ambulatory Orders Cetirizine (Nf) 10 mg PO DAILY 10/07/16 Dexlansoprazole [Dexilant] 60 mg PO DAILY 10/07/16 Losartan [Cozaar] 50 mg PO QDAY 10/07/16 Mirabegron [Myrbetriq] 50 mg PO DAILY 10/07/16 amLODIPine [Norvasc] 10 mg PO DAILY 10/07/16 Aspirin EC [Aspirin Enteric Coated TAB] 81 mg PO QDAY #30 tablet. 10/08/16 Butalb/Acetamin/Caff 50-325-40 [Fioricet] 1 tab PO Q6HR PRN #10 tab 10/14/18 ED Review of Systems ROS: Stated complaint: FACE PAIN Other details as noted in HPI Comment: All other systems reviewed and negative Constitutional: denies: chills, fever Eyes: denies: vision change Respiratory: denies: shortness of breath Cardiovascular: denies: chest pain Gastrointestinal: denies: nausea, vomiting Musculoskeletal: other (denies neck pain) Neurological: headache. denies: weakness, numbness, paresthesias ED Past Medical Hx - Past Medical History Previous Medical History?: Yes Hx Hypertension: Yes Hx Heart Attack/AMI: No Hx Congestive Heart Failure: No Hx Diabetes: No Hx Deep Vein Thrombosis: No Hx Pulmonary Embolism: No Hx GERD: Yes Hx Liver Disease: No Hx Renal Disease: No Hx Sickle Cell Disease: No Hx Arthritis: No Hx Seizures: No Hx Kidney Stones: No Hx Asthma: No Hx COPD: No Hx Tuberculosis: No Hx Dementia: No Hx HIV: No Additional medical history: Fatty tissue on liver, alcoholism - Surgical History Past Surgical History?: Yes Hx Coronary Stent: No Hx Pacemaker: No Hx Internal Defibrillator: No Additional Surgical History: bowel reconstruction-1999? part of colon removed; prostate removed - Social History Smoking Status: Never Smoker Substance Use Type: None - Medications Home Medications: Home Medications Medication Instructions Recorded Confirmed Last Taken Type Cetirizine (Nf) 10 mg PO DAILY 10/07/16 10/07/16 Unknown History Dexlansoprazole [Dexilant] 60 mg PO DAILY 10/07/16 10/07/16 Unknown History Losartan [Cozaar] 50 mg PO QDAY 10/07/16 10/07/16 Unknown History Mirabegron [Myrbetriq] 50 mg PO DAILY 10/07/16 10/07/16 Unknown History amLODIPine [Norvasc] 10 mg PO DAILY 10/07/16 10/07/16 Unknown History Aspirin EC [Aspirin Enteric Coated 81 mg PO QDAY #30 tablet.dr 10/08/16 Unknown Rx TAB] Butalb/Acetamin/Caff 50-325-40 1 tab PO Q6HR PRN #10 tab 10/14/18 Unknown Rx [Fioricet] ED Physical Exam - General Limitations: No Limitations General appearance: alert, in no apparent distress - Head Head exam: Present: other (tenderness to left temporal region, no swelling or erythma present) - Eye Eye exam: Present: normal appearance, PERRL, EOMI - ENT ENT exam: Present: mucous membranes moist - Neck Neck exam: Present: normal inspection. Absent: tenderness, meningismus - Respiratory Respiratory exam: Present: normal lung sounds bilaterally. Absent: respiratory distress - Cardiovascular Cardiovascular Exam: Present: regular rate, normal rhythm - GI/Abdominal GI/Abdominal exam: Absent: distended - Extremities Exam Extremities exam: Present: normal inspection - Neurological Exam Neurological exam: Present: alert, oriented X3, CN II-XII intact. Absent: motor sensory deficit - Psychiatric Psychiatric exam: Present: normal affect, normal mood - Skin Skin exam: Present: warm, dry, intact, normal color ED Course Vital Signs 10/14/18 10/14/18 10/14/18 09:48 11:18 12:43 Temperature 98.0 F 97.7 F Pulse Rate 65 56 L Respiratory 16 16 17 Rate Blood Pressure 141/70 Blood Pressure 131/65 [Left] O2 Sat by Pulse 98 99 Oximetry ED Medical Decision Making - Lab Data Result diagrams: 10/14/18 11:47 10/14/18 11:47 - Radiology Data Radiology results: report reviewed, image reviewed - Medical Decision Making - no neuro deficits - CRP normal - WBCs low at 2.8, however, stable since 05/2018 - vital signs normal - CT Head normal - will give rx for Fioricet - Differential Diagnosis tension AVERY, temporal arteritis, intracranial bleed Critical care attestation.: If time is entered above; I have spent that time in minutes in the direct care of this critically ill patient, excluding procedure time. ED Disposition Clinical Impression: Acute headache Disposition: DC-01 TO HOME OR SELFCARE Is pt being admited?: No Condition: Stable Instructions: Acute Headache (ED) Prescriptions: Butalb/Acetamin/Caff 50-325-40 [Fioricet] 1 tab PO Q6HR PRN #10 tab PRN Reason: Headache Referrals: PRIMARY CAREMD [Referring] - 3-5 Days KEYSHA GRANDE MD [Referring] - 3-5 Days Time of Disposition: 13:15
[2018-10-14 11:57] LABS: Basophils % (Auto) 0.8 % (0.0-1.8); Eosinophils # (Auto) 0.1 K/mm3 (0.0-0.4); Eosinophils % (Auto) 1.8 % (0.0-4.3); Hematocrit 41.8 % (35.5-45.6); Hemoglobin 14.3 gm/dl (11.8-15.2); Lymphocytes # (Auto) 1.2 K/mm3 (1.2-5.4); Mean Corpuscular HGB Conc 34 % (32-34); Mean Corpuscular Volume 85 fl (84-94); Monocytes # (Auto) 0.3 K/mm3 (0.0-0.8); Monocytes % (Auto) 10.9 % (0.0-7.3); Platelet Count 222 K/mm3 (140-440); Red Blood Count 4.93 M/mm3 (3.65-5.03); Red Cell Distribution Width 15.2 % (13.2-15.2)
[2018-10-14 12:13] LABS: BUN/Creatinine Ratio 8; Blood Urea Nitrogen 10 mg/dL (9-20); Calcium 9.6 mg/dL (8.4-10.2); Hemolysis Index 3
[2018-10-14 12:44] VITALS: BP 131/65
[2018-10-14 13:29] LABS: Bilirubin,Urine NEG (Negative); Blood,Urine NEG (Negative); Color,Urine Straw (Yellow); Mucus,Urine FEW /HPF; Protein,Urine <15 mg/dL mg/dL (Negative); Urobilinogen,Urine < 2.0 mg/dL (<2.0); WBC,Urine < 1.0 /HPF (0.0-6.0)
== END 2018-10-14 13:27 | disposition home or self-care (01) ==
LOC: ED 09:40
DX: R51 Headache (principal); I10 Essential (primary) hypertension; K21.9 Gastro-esophageal reflux disease without esophagitis
CPT/HCPCS: 36415; 70450; 80048; 81001; 85025; 86140

== ENCOUNTER 2019-01-12 08:56 | Outpatient (CLI) | payer MEDICARE ==
[2019-01-12 09:33] LABS: Basophils % (Auto) 0.5 % (0.0-1.8); Eosinophils # (Auto) 0.1 K/mm3 (0.0-0.4); Eosinophils % (Auto) 1.1 % (0.0-4.3); Hematocrit 44.4 % (35.5-45.6); Hemoglobin 14.7 gm/dl (11.8-15.2); Lymphocytes # (Auto) 1.6 K/mm3 (1.2-5.4); Mean Corpuscular HGB Conc 33 % (32-34); Mean Corpuscular Volume 87 fl (84-94); Monocytes # (Auto) 0.6 K/mm3 (0.0-0.8); Monocytes % (Auto) 12.7 % (0.0-7.3); Platelet Count 197 K/mm3 (140-440); Red Blood Count 5.11 M/mm3 (3.65-5.03)
[2019-01-12 10:00] LABS: Albumin 4.5 g/dL (3.9-5); BUN/Creatinine Ratio 9; Blood Urea Nitrogen 13 mg/dL (9-20); Calcium 9.7 mg/dL (8.4-10.2); Hemolysis Index 9
[2019-01-12 10:06] LABS: Creatinine,Urine 21.8 mg/dL (0.1-20.0)
[2019-01-12 10:18] LABS: Protein/Creatinine Ratio,Urine 0.18
== END 2019-01-12 08:57 | disposition home or self-care (01) ==
LOC: LAB 08:56
PROVIDERS: ATTEND Internal Medicine
DX: R94.8 Abnormal results of function studies of other organs and systems (principal); N40.0 Benign prostatic hyperplasia without lower urinary tract symptoms; D07.5 Carcinoma in situ of prostate; I10 Essential (primary) hypertension; K21.9 Gastro-esophageal reflux disease without esophagitis
CPT/HCPCS: 36415; 80048; 82040; 82570; 84100; 84156; 85025

== ENCOUNTER 2019-07-14 10:15 | Emergency (ER) | payer MEDICARE ==
[2019-07-14 10:25] VITALS: BP 133/63
[2019-07-14 11:28] LABS: Basophils % (Auto) 0.4 % (0.0-1.8); Eosinophils # (Auto) 0.1 K/mm3 (0.0-0.4); Eosinophils % (Auto) 1.6 % (0.0-4.3); Hematocrit 41.4 % (35.5-45.6); Hemoglobin 13.9 gm/dl (11.8-15.2); Lymphocytes # (Auto) 0.4 K/mm3 (1.2-5.4); Lymphocytes % (Auto) 12.4 % (13.4-35.0); Mean Corpuscular HGB Conc 34 % (32-34); Mean Corpuscular Volume 86 fl (84-94); Monocytes # (Auto) 0.3 K/mm3 (0.0-0.8); Monocytes % (Auto) 9.5 % (0.0-7.3); Platelet Count 187 K/mm3 (140-440); Red Blood Count 4.79 M/mm3 (3.65-5.03)
[2019-07-14 11:44] LABS: Alanine Aminotransferase 33 units/L (7-56); Albumin 4.6 g/dL (3.9-5); BUN/Creatinine Ratio 9; Blood Urea Nitrogen 10 mg/dL (9-20); Calcium 9.5 mg/dL (8.4-10.2); Hemolysis Index 9
--- NOTE | 2019-07-14 11:44 | XRay Report ---
CHEST 1 VIEW INDICATION / CLINICAL INFORMATION: Chest Pain. COMPARISON: 12/01/2017 FINDINGS: SUPPORT DEVICES: None. HEART / MEDIASTINUM: No significant abnormality. LUNGS / PLEURA: No significant pulmonary or pleural abnormality. No pneumothorax. ADDITIONAL FINDINGS: No significant additional findings. IMPRESSION: 1. No acute findings. Signer Name: José Luis Felder MD Signed: 07/14/2019 11:39 AM Workstation Name: [id number]
== END 2019-07-14 14:00 | disposition left against medical advice (07) ==
LOC: ED 10:15
DX: R51 Headache (principal); Z53.21 Procedure and treatment not carried out due to patient leaving prior to being seen by health care provider
CPT/HCPCS: 36415; 71046; 80053; 84484; 85025; 85730; 93005; 93010

== ENCOUNTER 2019-07-15 07:46 | Emergency (ER) | payer MEDICARE ==
[2019-07-15] MEDS ORDERED: ASPIRIN 325 MG TAB PO ONE (07:51)
[2019-07-15 08:02] VITALS: BP 156/83
[2019-07-15 08:46] LABS: Hematocrit 40.6 % (35.5-45.6); Hemoglobin 13.7 gm/dl (11.8-15.2); Mean Corpuscular HGB Conc 34 % (32-34); Mean Corpuscular Volume 87 fl (84-94); Platelet Count 180 K/mm3 (140-440); Red Cell Distribution Width 15.2 % (13.2-15.2)
[2019-07-15 09:04] LABS: BUN/Creatinine Ratio 8; Blood Urea Nitrogen 10 mg/dL (9-20); Calcium 9.2 mg/dL (8.4-10.2); Hemolysis Index 19
--- NOTE | 2019-07-15 09:10 | XRay Report ---
CHEST 1 VIEW INDICATION / CLINICAL INFORMATION: Chest Pain. COMPARISON: 07/14/2019 FINDINGS: SUPPORT DEVICES: None. HEART / MEDIASTINUM: No significant abnormality. LUNGS / PLEURA: No significant pulmonary or pleural abnormality.. No pneumothorax. ADDITIONAL FINDINGS: There are healed right-sided rib fractures which appear unchanged IMPRESSION: 1. No acute findings. Signer Name: Sanchez Dunbar MD Signed: 07/15/2019 9:06 AM Workstation Name: [id number]
[2019-07-15 11:40] LABS: Platelet Estimate Consistent w Auto; RBC Morphology Normal; Total Cells Counted 100
== END 2019-07-16 02:20 ==
LOC: ED 07:46
DX: R07.89 Other chest pain (principal); Z53.21 Procedure and treatment not carried out due to patient leaving prior to being seen by health care provider
CPT/HCPCS: 36415; 71045; 80048; 84484; 85007; 85025

== ENCOUNTER 2019-08-10 08:16 | Outpatient (CLI) | payer MEDICARE ==
[2019-08-10 10:14] LABS: Hematocrit 46.8 % (35.5-45.6); Hemoglobin 15.6 gm/dl (11.8-15.2); Mean Corpuscular HGB Conc 33 % (32-34); Mean Corpuscular Volume 87 fl (84-94); Red Blood Count 5.35 M/mm3 (3.65-5.03); Red Cell Distribution Width 15.5 % (13.2-15.2)
[2019-08-10 10:16] LABS: Platelet Count 34 K/mm3 (140-440)
[2019-08-10 12:27] LABS: BUN/Creatinine Ratio TNR; Blood Urea Nitrogen TNR mg/dL (9-20)
[2019-08-10 12:28] LABS: Albumin TNR g/dL (3.9-5); Calcium TNR mg/dL (8.4-10.2)
[2019-08-10 12:29] LABS: Alanine Aminotransferase TNR units/L (7-56); Hemolysis Index TNR
[2019-08-10 15:26] LABS: Creatinine,Urine 39.7 mg/dL (0.1-20.0)
[2019-08-13 11:04] LABS: Alanine Aminotransferase 35 units/L (7-56); Albumin 4.6 g/dL (3.9-5); BUN/Creatinine Ratio 6; Blood Urea Nitrogen 8 mg/dL (9-20); Calcium 9.8 mg/dL (8.4-10.2); Hemolysis Index 17
== END 2019-08-10 08:17 | disposition home or self-care (01) ==
LOC: LAB 08:16
PROVIDERS: ATTEND Internal Medicine
DX: R94.8 Abnormal results of function studies of other organs and systems (principal)
CPT/HCPCS: 36415; 80053; 82570; 84156; 85027

== ENCOUNTER 2019-08-27 09:36 | Outpatient (CLI) | payer MEDICARE ==
[2019-08-27 10:01] LABS: Basophils % (Auto) 0.9 % (0.0-1.8); Eosinophils # (Auto) 0.1 K/mm3 (0.0-0.4); Eosinophils % (Auto) 3.2 % (0.0-4.3); Hematocrit 43.8 % (35.5-45.6); Hemoglobin 14.6 gm/dl (11.8-15.2); Lymphocytes # (Auto) 1.1 K/mm3 (1.2-5.4); Lymphocytes % (Auto) 32.3 % (13.4-35.0); Mean Corpuscular HGB Conc 33 % (32-34); Mean Corpuscular Volume 88 fl (84-94); Monocytes # (Auto) 0.4 K/mm3 (0.0-0.8); Monocytes % (Auto) 10.9 % (0.0-7.3); Platelet Count 196 K/mm3 (140-440); Red Cell Distribution Width 15.3 % (13.2-15.2)
== END 2019-08-27 09:37 | disposition home or self-care (01) ==
LOC: LAB 09:36
PROVIDERS: ATTEND Internal Medicine
DX: N40.0 Benign prostatic hyperplasia without lower urinary tract symptoms (principal); I10 Essential (primary) hypertension; D07.5 Carcinoma in situ of prostate; R94.8 Abnormal results of function studies of other organs and systems
CPT/HCPCS: 36415; 85025

== ENCOUNTER 2019-12-30 09:56 | Outpatient (CLI) | payer MEDICARE ==
[2019-12-30 10:45] LABS: Basophils % (Auto) 0.8 % (0.0-1.8); Eosinophils # (Auto) 0.1 K/mm3 (0.0-0.4); Eosinophils % (Auto) 2.5 % (0.0-4.3); Hematocrit 43.1 % (35.5-45.6); Hemoglobin 14.4 gm/dl (11.8-15.2); Lymphocytes # (Auto) 1.3 K/mm3 (1.2-5.4); Lymphocytes % (Auto) 41.1 % (13.4-35.0); Mean Corpuscular HGB Conc 34 % (32-34); Mean Corpuscular Volume 88 fl (84-94); Monocytes # (Auto) 0.4 K/mm3 (0.0-0.8); Monocytes % (Auto) 13.1 % (0.0-7.3); Platelet Count 175 K/mm3 (140-440); Red Cell Distribution Width 15.5 % (13.2-15.2)
[2019-12-30 11:09] LABS: Alanine Aminotransferase 58 units/L (7-56); BUN/Creatinine Ratio 11; Blood Urea Nitrogen 14 mg/dL (9-20); Calcium 9.5 mg/dL (8.4-10.2); Hemolysis Index 5
[2019-12-30 12:14] LABS: Albumin 4.7 g/dL (3.9-5)
[2019-12-30 14:38] LABS: Creatinine,Urine 45.2 mg/dL (0.1-20.0)
[2019-12-30 14:49] LABS: Protein/Creatinine Ratio,Urine 0.09
== END 2019-12-30 09:57 | disposition home or self-care (01) ==
LOC: LAB 09:56
PROVIDERS: ATTEND Internal Medicine
DX: N40.0 Benign prostatic hyperplasia without lower urinary tract symptoms (principal); R94.8 Abnormal results of function studies of other organs and systems; I10 Essential (primary) hypertension; D07.5 Carcinoma in situ of prostate
CPT/HCPCS: 36415; 80053; 82570; 84156; 85025

== ENCOUNTER 2020-02-09 07:26 | Outpatient (CLI) | payer MEDICARE ==
--- NOTE | 2020-02-09 08:16 | Cat Scan Report ---
CT ABDOMEN AND PELVIS WITHOUT CONTRAST HISTORY: [id number] neoplasm of prostate COMPARISON: 12/13/2015 TECHNIQUE: Axial CT images were obtained through the abdomen and pelvis without IV contrast. Sagittal and coronal reformatted images. All CT scans at this location are performed using CT dose reduction for ALARA by means of automated exposure control. FINDINGS: CT ABDOMEN: Lung Bases: Clear. Liver: No significant abnormality. Biliary: Cholecystectomy. No biliary dilatation. Spleen: No significant abnormality. Unenlarged. Pancreas: No significant abnormality. Adrenals: No significant abnormality. Kidneys: No significant abnormality. Lymphatics: No lymphadenopathy. Vasculature: No significant abnormality. Bowel/Peritoneum: Surgical changes are noted in the distal small bowel/proximal colon, correlate with history. There is no evidence for bowel obstruction or focal inflammation. CT PELVIS: : Prostatectomy changes are suspected. The bladder is poorly distended. There appears to be mild di ffuse bladder wall thickening which probably represents trabeculation. No bladder filling defect. Osseous Structures: Mild lumbar spondylosis. No suspicious bony lesion is detected. Additional Findings: Previous ventral wall hernia changes are identified which appear intact. IMPRESSION: Essentially unremarkable exam. No evidence for metastatic disease. Chronic findings as described sirena hollingsworth Signer Name: Clay Grande Jr, MD Signed: 02/09/2020 8:12 AM Workstation Name: [id number]
== END 2020-02-09 07:27 | disposition home or self-care (01) ==
LOC: CT 07:26
PROVIDERS: ATTEND Urology
DX: C61 Malignant neoplasm of prostate (principal); M47.816 Spondylosis without myelopathy or radiculopathy, lumbar region
CPT/HCPCS: 74176

== ENCOUNTER 2020-07-07 09:34 | Outpatient (CLI) | payer MEDICARE ==
[2020-07-07 10:55] LABS: Basophils % (Auto) 0.9 % (0.0-1.8); Eosinophils # (Auto) 0.1 K/mm3 (0.0-0.4); Hemoglobin 14.4 gm/dl (11.8-15.2); Lymphocytes # (Auto) 1.1 K/mm3 (1.2-5.4); Mean Corpuscular HGB Conc 33 % (32-34); Mean Corpuscular Volume 88 fl (84-94); Monocytes # (Auto) 0.4 K/mm3 (0.0-0.8); Monocytes % (Auto) 12.2 % (0.0-7.3); Platelet Count 164 K/mm3 (140-440); Red Blood Count 4.88 M/mm3 (3.65-5.03); Red Cell Distribution Width 15.2 % (13.2-15.2)
[2020-07-07 11:13] LABS: Alanine Aminotransferase 96 units/L (7-56); Albumin 4.3 g/dL (3.9-5); BUN/Creatinine Ratio 7; Blood Urea Nitrogen 8 mg/dL (9-20); Calcium 9.7 mg/dL (8.4-10.2); Hemolysis Index 30
[2020-07-07 15:18] LABS: Creatinine,Urine 197.7 mg/dL (0.1-20.0); Protein/Creatinine Ratio,Urine 0.12
== END 2020-07-07 09:35 | disposition home or self-care (01) ==
LOC: LAB 09:34
PROVIDERS: ATTEND Internal Medicine
DX: I10 Essential (primary) hypertension (principal); R94.8 Abnormal results of function studies of other organs and systems; R94.4 Abnormal results of kidney function studies; N40.0 Benign prostatic hyperplasia without lower urinary tract symptoms; D07.5 Carcinoma in situ of prostate
CPT/HCPCS: 36415; 80053; 82570; 84156; 85025; 89050

== ENCOUNTER 2021-06-08 08:07 | Outpatient (CLI) | payer MEDICARE ==
[2021-06-08 08:39] LABS: Hematocrit 42.7 % (35.5-45.6); Hemoglobin 14.1 gm/dl (11.8-15.2); Mean Corpuscular HGB Conc 33 % (32-34); Mean Corpuscular Volume 88 fl (84-94); Platelet Count 183 K/mm3 (140-440); Red Blood Count 4.85 M/mm3 (3.65-5.03); Red Cell Distribution Width 15.1 % (13.2-15.2)
[2021-06-08 08:40] LABS: ABG Base Excess 0.5 mmol/L (-2.0-3.0); ABG Methemoglobin 0.5 % (0.0-1.5); ABG Oxygen Saturation 96.8 % (95.0-99.0); ABG PCO2 39.9 mm Hg; ABG PH 7.416 pH Units (7.350-7.450); ABG PO2 87.5 mm Hg (80.0-90.0)
[2021-06-08 09:24] LABS: Alanine Aminotransferase 37 units/L (7-56); Albumin 4.7 g/dL (3.9-5); BUN/Creatinine Ratio 13; Blood Urea Nitrogen 16 mg/dL (9-20); Calcium 9.4 mg/dL (8.4-10.2); Chol/HDL Ratio 3.64 %; HDL Cholesterol 50 mg/dL (40-59); Hemolysis Index 6; LDL Cholesterol,Direct 116 mg/dL (50-130)
--- NOTE | 2021-06-08 10:09 | XRay Report ---
CHEST 2 VIEWS INDICATION / CLINICAL INFORMATION: UNSPECIFIED ASTHMA. COMPARISON: 07/15/2019 FINDINGS: SUPPORT DEVICES: None. HEART / MEDIASTINUM: No significant abnormality. LUNGS / PLEURA: Mild chronic interstitial lung disease is stable. Chronic peribronchial cuffing is ag ain noted bilaterally. No area of consolidation or focal disease is noted. No pleural effusion. No pn eumothorax. ADDITIONAL FINDINGS: No significant additional findings. IMPRESSION: 1. Chronic findings of mild interstitial lung disease with peribronchial cuffing is noted, consistent with patient's history of asthma. No acute finding or significant interval change from prior exam. Signer Name: Jil Sanches MD Signed: 06/08/2021 10:04 AM Workstation Name: [id number]
--- NOTE | 2021-06-08 10:10 | XRay Report ---
SINUS SERIES, 4 VIEWS INDICATION / CLINICAL INFORMATION: CHEST TIGHTNESS. COMPARISON: None available. FINDINGS: The visualized paranasal sinuses are well aerated. No air-fluid levels or visible mucosal thickening is noted. IMPRESSION: Paranasal sinuses appear well aerated and clear. Signer Name: Jil Sanches MD Signed: 06/08/2021 10:05 AM Workstation Name: [id number]
--- NOTE | 2021-06-08 11:47 | Electrocardiograph Report ---
[facility] Test Date: 2021-06-08 Test Time: 10:17:14 Pat Name: RAMON LOPEZ Department: Room: Gender: M Needle Straightener: ANU : 1950 Requested By: GOLDY SULLIVAN Order Number: [id number] Reading MD: Edy Stone Measurements Intervals [place] Rate: 67 P: 62 [place]: 155 QRS: -29 QRSD: 100 T: 32 QT: 434 QTc: 458 Interpretive Statements Sinus rhythm No previous ECG available for comparison Electronically Signed On 06-08-2021 11:46:48 EST by Edy Stone
== END 2021-06-08 08:08 | disposition home or self-care (01) ==
LOC: CARD 08:07
PROVIDERS: ATTEND Internal Medicine
DX: J45.909 Unspecified asthma, uncomplicated (principal); G47.33 Obstructive sleep apnea (adult) (pediatric); J30.89 Other allergic rhinitis; K21.9 Gastro-esophageal reflux disease without esophagitis; R07.89 Other chest pain; R91.8 Other nonspecific abnormal finding of lung field; Z68.30 Body mass index [BMI] 30.0-30.9, adult; Z20.828 Contact with and (suspected) exposure to other viral communicable diseases
CPT/HCPCS: 36415; 70220; 71046; 80053; 80061; 82550; 82728; 82803; 83615; 84436; 84443; 84484; 85027; 85379; 86140; 93005

== ENCOUNTER 2021-06-19 08:49 | Outpatient (CLI) | payer MEDICARE ==
[2021-06-19 09:18] LABS: Basophils % (Auto) 0.3 % (0.0-1.8); Eosinophils # (Auto) 0.1 K/mm3 (0.0-0.4); Eosinophils % (Auto) 1.6 % (0.0-4.3); Hematocrit 41.6 % (35.5-45.6); Hemoglobin 13.5 gm/dl (11.8-15.2); Lymphocytes # (Auto) 1.8 K/mm3 (1.2-5.4); Lymphocytes % (Auto) 30.3 % (13.4-35.0); Mean Corpuscular HGB Conc 33 % (32-34); Mean Corpuscular Volume 90 fl (84-94); Monocytes # (Auto) 0.6 K/mm3 (0.0-0.8); Monocytes % (Auto) 10.8 % (0.0-7.3); Platelet Count 216 K/mm3 (140-440); Red Blood Count 4.64 M/mm3 (3.65-5.03); Red Cell Distribution Width 15.5 % (13.2-15.2)
[2021-06-19 09:41] LABS: Alanine Aminotransferase 61 units/L (7-56); Albumin 4.4 g/dL (3.9-5); BUN/Creatinine Ratio 8; Blood Urea Nitrogen 9 mg/dL (9-20); Calcium 9.1 mg/dL (8.4-10.2); Hemolysis Index 6
[2021-06-19 12:53] LABS: Creatinine,Urine 42.5 mg/dL (0.1-20.0)
== END 2021-06-19 08:50 | disposition home or self-care (01) ==
LOC: LAB 08:49
PROVIDERS: ATTEND Internal Medicine
DX: I10 Essential (primary) hypertension (principal); R94.8 Abnormal results of function studies of other organs and systems
CPT/HCPCS: 36415; 80053; 82570; 84156; 85025

== ENCOUNTER 2021-12-25 09:18 | Outpatient (CLI) | payer MEDICARE ==
[2021-12-25 10:28] LABS: Basophils % (Auto) 0.5 % (0.0-1.8); Eosinophils # (Auto) 0.1 K/mm3 (0.0-0.4); Eosinophils % (Auto) 3.4 % (0.0-4.3); Hematocrit 41.9 % (35.5-45.6); Hemoglobin 13.9 gm/dl (11.8-15.2); Lymphocytes # (Auto) 1.1 K/mm3 (1.2-5.4); Lymphocytes % (Auto) 42.7 % (13.4-35.0); Mean Corpuscular HGB Conc 33 % (32-34); Mean Corpuscular Volume 86 fl (84-94); Monocytes # (Auto) 0.4 K/mm3 (0.0-0.8); Monocytes % (Auto) 15.5 % (0.0-7.3); Platelet Count 173 K/mm3 (140-440); Red Blood Count 4.87 M/mm3 (3.65-5.03); Red Cell Distribution Width 15.3 % (13.2-15.2)
[2021-12-25 10:44] LABS: Alanine Aminotransferase 34 units/L (7-56); Albumin 4.6 g/dL (3.9-5); BUN/Creatinine Ratio 9; Blood Urea Nitrogen 11 mg/dL (9-20); Calcium 9.4 mg/dL (8.4-10.2); Hemolysis Index 8
[2021-12-25 13:23] LABS: Creatinine,Urine 31.7 mg/dL (0.1-20.0)
[2021-12-25 13:30] LABS: Protein/Creatinine Ratio,Urine 0.13
== END 2021-12-25 09:19 | disposition home or self-care (01) ==
LOC: LAB 09:18
PROVIDERS: ATTEND Internal Medicine
DX: I10 Essential (primary) hypertension (principal); N40.0 Benign prostatic hyperplasia without lower urinary tract symptoms; R94.8 Abnormal results of function studies of other organs and systems; D07.5 Carcinoma in situ of prostate
CPT/HCPCS: 36415; 80053; 82570; 84156; 85025